=== PATIENT | female | born 1935 | race Caucasian/White ===

== ENCOUNTER 2016-04-14 01:44 | Observation (INO) | payer OTHER ==
[~2016-04-14] VITALS: Ht 157.5 cm; Wt 99.7 kg
[~2016-04-14 01:44] MED LIST: ACETAMINOPHEN325 M1 PO; ADALAT CC 30 MG30 MG PO; ADALAT CC 60 MG60 MG PO; ADVAIR 250/501 DISK IH; ADVAIR HFA120 INHALA IH; ALBUTEROL SULF8.5 GM IH; ALDACTONE25 MG PO; ANTI-ITCH28.4 GM TP; ARTANE2 MG PO; ASPIR 8181 MG PO; ASPIR-LOW81 MG PO; ASPIRIN E.C.81 M1 PO; ASPIRIN325 MG PO; ASPIRIN81 M2 PO; ATORVASTATIN CA40 MG PO; Apresoline PO; B-12500 MC1 SL; BENADRYL25 MG PO; BENICAR20 MG PO; CALCIO DEL MAR500 MG PO; CALTRATE 600600 MG PO; CARBIDOPA-LEVO1 EAC1 PO; CARBIDOPA/LEVO1 EACH PO; CARBIDOPA25 MG PO; CARVEDILOL12.5 MG PO; CATAPRES0.1 MG PO; CATAPRES0.2 MG PO; CEFDINIR300 MG PO; CELEXA20 MG PO; CIPROFLOXACIN500 M1 PO; CITALOPRAM HBR20 MG PO; CITALOPRAM HBR40 MG PO; CLONAZEPAM0.5 MG PO; CLONIDINE HCL0.1 MG PO; CLONIDINE HCL0.2 MG PO; COLACE100 MG PO; COZAAR50 MG PO; CYANOCOBALAM1000 MCG PO; Catapres PO; Cipro PO; Cozaar PO; DESYREL100 MG PO; DIOVAN; DIOVAN160 MG PO; DOCUSATE SODIU100 MG PO; DOXYCYCLINE HY100 MG PO; DUONEB 2.5-0.5 M3 ML AEROSOL; DUONEB 2.5-0.5 M3 ML IH; DUONEB 2.5-0.5 M3 ML PEP; ENALAPRIL MALEAT5 MG PO; ENDOCET 5-3251 EACH PO; FERROUS SULFAT325 MG PO; FISH OIL300 MG PO; FISH OIL500 MG PO; FLOMAX0.4 MG PO; FUROSEMIDE; FUROSEMIDE20 MG PO; FUROSEMIDE40 MG PO; GABAPENTIN100 MG PO; GABAPENTIN300 MG PO; HYDRALAZINE HCL25 MG PO; IMDUR30 MG PO; ISOSORBIDE MONO30 MG PO; K-DUR10 MEQ PO; LABETALOL HCL200 MG PO; LANTUS; LANTUS 10100 UNITS/ SC; LANTUS 3 M100 UNITS/ SC; LANTUS 3 M100 UNITS1 SC; LANTUS100 UNIT/1 SQ; LASIX20 MG PO; LASIX40 MG PO; LASIX80 MG PO; LEVAQUIN500 MG PO; LEVOFLOXACIN750 MG PO; LEXAPRO10 MG PO; LEXAPRO20 MG PO; LIPITOR40 MG PO; LISINOPRIL10 MG PO; LO-DOSE ASPIRIN81 M1 PO; LO-DOSE ASPIRIN81 M2 PO; LOPRESSOR100 M1 PO; LOSARTAN POTASS25 MG PO; LOSARTAN POTASS50 MG PO; Lasix PO; MEDROL4 MG PO; MELATONIN10 M2 PO; MELATONIN5 MG SL; METFORMIN HCL500 MG PO; METOPROLOL SUC100 MG PO; METOPROLOL SUCC25 MG PO; METOPROLOL SUCC50 MG PO; METOPROLOL TAR100 MG PO; MIRAPEX0.25 MG PO; Martinic PO; Medrol Dosepak PO; NEOSPORIN ANT70.8 GM TP; NEURONTIN300 MG PO; NIFEDIAC CC30 MG PO; NIFEDICAL XL30 MG PO; NIFEDIPINE ER60 MG PO; NIFEDIPINE20 MG PO; NITROSTAT0.4 MG SL; NORMODYNE,TRAN200 MG PO; NOVOLOG 10100 UNITS/ SC; NOVOLOG PE100 UNITS/ SC; OMEGA 3 1,0001 EACH PO; OXYCODONE HCL10 MG PO; Omega III EPA + DHA PO; PARCOPA PO; PERCOCET 10/1 TABLET PO; PLAVIX75 MG PO; POTASSIUM CHLO10 ME3 PO; PRAMIPEXOLE D0.25 MG PO; PRAMIPEXOLE D0.75 MG PO; PRINIVIL20 MG PO; PROBIOTIC250 MG PO; PROTONIX40 MG PO; Procardia XL,Adalat PO; QUETIAPINE FUMA25 MG PO; ROBITUSSIN AC,T10 ML PO; SENNA8.6 MG PO; SINEMET 25-1001 EACH PO; SINEMET CR 50-1 EACH PO; SINEMET PO; SPIRONOLACTONE25 MG PO; SPIRONOLACTONE50 MG PO; TOPROL XL50 MG PO; TOUJEO SOL300 UNIT/1 SC; TOVIAZ4 MG PO; TRAMADOL HCL50 MG PO; TRAZODONE HCL100 MG PO; TRAZODONE HCL50 MG PO; TRESIBA FL100 UNIT/1 SC; TRIHEXYPHENIDYL HCL PO; TUMS500 MG PO; Toprol XL PO; VITAMIN B-1100 MG PO; VITAMIN B-6100 MG PO; VYTORIN 10-801 EACH PO; VYTORIN 10/81 TABLET PO; ZESTORETIC,P1 TABLE1 PO; Zestoretic,Prinzide PO
[2016-04-14 02:16] LABS: HEMATOCRIT 36.7 % (36.0-46.0); MCH 28.8 PG (29.0-34.0); MCHC 33.8 G/DL (30.0-36.0); MCV 85.2 FL (83-99); MEAN PLAT.VOLUME 10.2 uM^3 (9.5-12.4); PLATELET COUNT 219 K/uL (156-360); RBC DIS.WIDTH-CV 12.3 % (11.8-14.6); RBC DIS.WIDTH-SD 36.8 % (39-53); RED BLOOD COUNT 4.31 M/uL (3.80-5.20); WHITE BLOOD COUNT 7.7 K/uL (4.1-10.2)
[2016-04-14 02:27] LABS: CHLORIDE 100 mEq/L (99-109); POTASSIUM 4.8 mEq/L (3.7-5.4); SODIUM 136 mEq/L (136-147)
[2016-04-14 02:28] LABS: GLUCOSE 322 mg/dL (70-99)
[2016-04-14 02:30] LABS: ANION GAP 12 MEQ/L (2-14)
[2016-04-14 02:32] LABS: GFR ESTIMATE (CALCULATED) 36 mL/min/
[2016-04-14 02:33] LABS: UREA NITROGEN (BUN) 50 mg/dL (9-23)
[2016-04-14 02:39] LABS: TROP-I INTERPRETATION NEGATIVE; TROPONIN-I 0.01 ng/mL (0.0-0.30)
[2016-04-14 05:13] VITALS: BP 177/77
[2016-04-14 07:16] VITALS: BP 158/69
[2016-04-14 07:41] VITALS: BP 147/64
[2016-04-14 08:37] LABS: POINT-OF-CARE METER ID UU13113831
[2016-04-14 09:28] LABS: HEMATOCRIT 35.3 % (36.0-46.0); MCH 28.4 PG (29.0-34.0); MCHC 33.4 G/DL (30.0-36.0); MCV 85.1 FL (83-99); MEAN PLAT.VOLUME 10.3 uM^3 (9.5-12.4); PLATELET COUNT 194 K/uL (156-360); RBC DIS.WIDTH-CV 12.6 % (11.8-14.6); RBC DIS.WIDTH-SD 38.6 % (39-53); RED BLOOD COUNT 4.15 M/uL (3.80-5.20); WHITE BLOOD COUNT 7.6 K/uL (4.1-10.2)
[2016-04-14 10:05] LABS: ALKALINE PHOSPHATASE 90 IU/L (3-129); ANION GAP 8 MEQ/L (2-14); CHLORIDE 101 MEQ/L (99-109); GFR ESTIMATE (CALCULATED) 57 mL/min/; GLUCOSE 125 mg/dL (70-99); POTASSIUM 4.5 MEQ/L (3.7-5.4); SAMPLE HEMOLYSIS CHECK 0; SAMPLE ICTERIC CHECK 0; SAMPLE LIPEMIA CHECK 0; SODIUM 138 MEQ/L (136-147); TOTAL BILIRUBIN 0.4 MG/DL (0.0-1.0); UREA NITROGEN (BUN) 40 mg/dL (9-23)
[2016-04-14 10:07] LABS: TROP-I INTERPRETATION NEGATIVE; TROPONIN-I 0.01 ng/mL (0.0-0.30)
[2016-04-14 10:57] VITALS: BP 123/56
[2016-04-14 12:35] LABS: POINT-OF-CARE METER ID UU13113831
[2016-04-14 13:18] LABS: ADD MIUA? YES; BILIRUBIN NEGATIVE; BLOOD NEGATIVE; COLOR YELLOW ((YELLOW)); GLUCOSE (STRIP) NEGATIVE; KETONES 5; LEUKOCYTES MODERATE; NITRITE NEGATIVE; PROTEIN (STRIP) NEGATIVE; SPECIFIC GRAVITY 1.015 (1.000-1.030); UROBILINOGEN 0.2 MG/DL (0.2-1.0)
[2016-04-14 14:12] LABS: BACTERIA RARE /HPF; EPITHELIAL CELLS 1+ /HPF; HYALINE CASTS 0-5 /LPF; MUCUS NONE SEEN /LPF; RED BLOOD CELLS NONE SEEN /HPF (0-5); UCUL ADDED? NO; WHITE BLOOD CELLS 40-50 /HPF (0-5); WHITE BLOOD CELLS CLUMP FEW /HPF (0-5)
[2016-04-14 15:45] LABS: TROP-I INTERPRETATION NEGATIVE; TROPONIN-I < 0.01 ng/mL (0.0-0.30)
[2016-04-14 16:14] VITALS: BP 168/77
[2016-04-14] MEDS ORDERED: AMLODIPINE BESYL5 MG PO (16:15)
[2016-04-14 17:49] LABS: POINT-OF-CARE METER ID UU14162513
== END 2016-04-14 18:07 | disposition home or self-care (01) ==
LOC: EME → EDBD 01:44 → EDOF 03:49 → 5WEST 04:58
PROVIDERS: Emergency Medicine; Hospitalist; Internal Medicine; Nurse Practitioner Family
DX: R07.9 Chest pain, unspecified (principal); F41.9 Anxiety disorder, unspecified; G20 Parkinson's disease; E11.9 Type 2 diabetes mellitus without complications; Z79.4 Long term (current) use of insulin; I25.10 Atherosclerotic heart disease of native coronary artery without angina pectoris; Z98.61 Coronary angioplasty status; I10 Essential (primary) hypertension; E78.5 Hyperlipidemia, unspecified; I35.0 Nonrheumatic aortic (valve) stenosis; I44.7 Left bundle-branch block, unspecified; Z79.82 Long term (current) use of aspirin; E66.9 Obesity, unspecified; Z68.41 Body mass index [BMI] 40.0-44.9, adult; M19.90 Unspecified osteoarthritis, unspecified site; Z96.642 Presence of left artificial hip joint; Z82.49 Family history of ischemic heart disease and other diseases of the circulatory system; Z80.9 Family history of malignant neoplasm, unspecified; Z88.0 Allergy status to penicillin
CPT/HCPCS: 71010; 80048; 80053; 81003; 82948; 84484; 85027; 93005; 94799; 99202; 99281; 99285; G0378; J1644; J1815

== ENCOUNTER 2016-05-25 07:51 | Observation (INO) | payer OTHER ==
[~2016-05-25] VITALS: Ht 163.8 cm; Wt 100.6 kg
[~2016-05-25 07:51] MED LIST changes: +AMLODIPINE BESYL5 MG PO
[2016-05-25] MEDS ORDERED: LIPITOR40 MG PO (08:12)
[2016-05-25] MEDS ORDERED: CARBIDOPA/LEVO1 EACH PO (08:13)
[2016-05-25] MEDS ORDERED: MELATONIN5 M4 PO (08:13)
[2016-05-25] MEDS ORDERED: IMDUR30 MG PO (08:13)
[2016-05-25] MEDS ORDERED: SPIRONOLACTONE25 MG PO (08:14)
[2016-05-25] MEDS ORDERED: TORSEMIDE10 MG PO (08:14)
[2016-05-25] MEDS ORDERED: DESYREL100 MG PO (08:15)
[2016-05-25] MEDS ORDERED: MIRAPEX0.25 MG PO (08:15)
[2016-05-25] MEDS ORDERED: LASIX20 MG PO (08:15)
[2016-05-25] MEDS ORDERED: CITALOPRAM HBR20 MG PO (08:16)
[2016-05-25] MEDS ORDERED: METOPROLOL TAR100 MG PO (08:16)
[2016-05-25] MEDS ORDERED: LO-DOSE ASPIRIN81 M2 PO (08:17)
[2016-05-25] MEDS ORDERED: TRESIBA FL100 UNIT/1 SC (08:18)
[2016-05-25 08:39] LABS: HEMATOCRIT 37.5 % (36.0-46.0); MCH 28.4 PG (29.0-34.0); MCHC 32.8 G/DL (30.0-36.0); MCV 86.6 FL (83-99); MEAN PLAT.VOLUME 10.2 uM^3 (9.5-12.4); PLATELET COUNT 235 K/uL (156-360); RBC DIS.WIDTH-CV 12.4 % (11.8-14.6); RED BLOOD COUNT 4.33 M/uL (3.80-5.20); WHITE BLOOD COUNT 7.2 K/uL (4.1-10.2)
[2016-05-25 08:51] LABS: CHLORIDE 101 mEq/L (99-109); POTASSIUM 4.4 mEq/L (3.7-5.4); SODIUM 137 mEq/L (136-147)
[2016-05-25 08:53] LABS: GLUCOSE 252 mg/dL (70-99)
[2016-05-25 08:54] LABS: ANION GAP 9 MEQ/L (2-14)
[2016-05-25 08:57] LABS: GFR ESTIMATE (CALCULATED) 46 mL/min/
[2016-05-25 08:58] LABS: UREA NITROGEN (BUN) 28 mg/dL (9-23)
[2016-05-25 09:01] LABS: TROP-I INTERPRETATION NEGATIVE; TROPONIN-I < 0.01 ng/mL (0.0-0.30)
[2016-05-25] MEDS ORDERED: FUROSEMIDE40 MG PO (10:11)
[2016-05-25] MEDS ORDERED: CITALOPRAM HBR40 MG PO (10:13)
[2016-05-25] MEDS ORDERED: GABAPENTIN100 MG PO (10:14)
[2016-05-25] MEDS ORDERED: PERCOCET 10/1 TABLET PO (10:14)
[2016-05-25] MEDS ORDERED: PLAVIX75 MG PO (10:15)
[2016-05-25] MEDS ORDERED: MOVE IT ALONG100 MG PO (10:15)
[2016-05-25] MEDS ORDERED: VITAMIN B-6100 MG PO (10:15)
[2016-05-25 11:23] LABS: POINT-OF-CARE METER ID UU13113702
[2016-05-25 11:57] VITALS: BP 156/69
[2016-05-25 15:18] LABS: TROP-I INTERPRETATION NEGATIVE; TROPONIN-I 0.02 ng/mL (0.0-0.30)
[2016-05-25 16:25] VITALS: BP 119/58
[2016-05-25 17:07] LABS: POINT-OF-CARE METER ID UU13113831
[2016-05-25 20:55] VITALS: BP 141/66
[2016-05-25 21:06] LABS: TROP-I INTERPRETATION NEGATIVE; TROPONIN-I 0.02 ng/mL (0.0-0.30)
[2016-05-26 00:15] VITALS: BP 126/60
[2016-05-26 06:04] VITALS: BP 136/68
[2016-05-26 08:00] VITALS: BP 133/63
[2016-05-26 10:56] LABS: ALKALINE PHOSPHATASE 73 IU/L (3-129); ANION GAP 6 MEQ/L (2-14); CHLORIDE 101 MEQ/L (99-109); GFR ESTIMATE (CALCULATED) 57 mL/min/; POTASSIUM 4.1 MEQ/L (3.7-5.4); SAMPLE HEMOLYSIS CHECK 0; SAMPLE ICTERIC CHECK 0; SAMPLE LIPEMIA CHECK 0; SODIUM 139 MEQ/L (136-147); TOTAL BILIRUBIN 0.6 MG/DL (0.0-1.0); UREA NITROGEN (BUN) 28 mg/dL (9-23)
[2016-05-26 11:09] LABS: GLUCOSE 118 mg/dL (70-99)
== END 2016-05-26 11:27 | disposition home or self-care (01) ==
LOC: EME → EDBD 07:51 → EME 07:51 → 5WEST 10:07 → EDOF 10:07 → 5WEST 11:33
PROVIDERS: Hospitalist; Internal Medicine; Physician Assistant
DX: R07.89 Other chest pain (principal); R91.8 Other nonspecific abnormal finding of lung field; G20 Parkinson's disease; I10 Essential (primary) hypertension; J44.9 Chronic obstructive pulmonary disease, unspecified; E11.65 Type 2 diabetes mellitus with hyperglycemia; I25.10 Atherosclerotic heart disease of native coronary artery without angina pectoris; E78.5 Hyperlipidemia, unspecified; I08.0 Rheumatic disorders of both mitral and aortic valves; I44.7 Left bundle-branch block, unspecified; F32.9 Major depressive disorder, single episode, unspecified; Z95.5 Presence of coronary angioplasty implant and graft; Z96.642 Presence of left artificial hip joint
CPT/HCPCS: 71010; 80048; 80053; 82948; 83880; 84484; 85027; 93005; 99281; 99285; G0378; J1650; J1815

== ENCOUNTER 2016-06-11 16:59 | Emergency (ER) | payer OTHER ==
[~2016-06-11] VITALS: Ht 162.6 cm; Wt 102.6 kg
[~2016-06-11 16:59] MED LIST changes: +MELATONIN5 M4 PO; +MOVE IT ALONG100 MG PO; +TORSEMIDE10 MG PO
[2016-06-11 18:00] LABS: BASOPHIL COUNT 0.1 K/uL (0-0.1); EOSINOPHIL COUNT 0.2 K/uL (0-0.3); HEMATOCRIT 34.8 % (36.0-46.0); IMMATURE GRANULOCYTE (%) 0.3 % (0.0-0.7); LYMPHOCYTE COUNT 1.8 K/uL (1.0-2.8); MCH 28.3 PG (29.0-34.0); MCHC 32.5 G/DL (30.0-36.0); MCV 87.2 FL (83-99); MEAN PLAT.VOLUME 9.6 uM^3 (9.5-12.4); MONOCYTE (%) 7.5 % (3-12); MONOCYTE COUNT 0.7 K/uL (0-0.8); NEUTROPHIL (%) 68.8 % (45-76); PLATELET COUNT 253 K/uL (156-360); RBC DIS.WIDTH-CV 12.8 % (11.8-14.6); RBC DIS.WIDTH-SD 40.8 % (39-53); RED BLOOD COUNT 3.99 M/uL (3.80-5.20); WHITE BLOOD COUNT 8.7 K/uL (4.1-10.2)
[2016-06-11 18:07] LABS: CARBON DIOXIDE (BICARBONATE) 34.2 MEQ/L (20-31)
[2016-06-11 18:13] LABS: CHLORIDE 102 mEq/L (99-109); POTASSIUM 5.1 mEq/L (3.7-5.4); SODIUM 139 mEq/L (136-147)
[2016-06-11 18:14] LABS: GLUCOSE 106 mg/dL (70-99)
[2016-06-11 18:16] LABS: ANION GAP 8 MEQ/L (2-14)
[2016-06-11 18:18] LABS: GFR ESTIMATE (CALCULATED) 57 mL/min/
[2016-06-11 18:19] LABS: UREA NITROGEN (BUN) 28 mg/dL (9-23)
[2016-06-11 18:24] LABS: TROP-I INTERPRETATION NEGATIVE; TROPONIN-I < 0.01 ng/mL (0.0-0.30)
[2016-06-11 19:04] LABS: INFLUENZA A VIRAL ANTIGEN POSITIVE; INFLUENZA B VIRAL ANTIGEN NEGATIVE
[2016-06-11] MEDS ORDERED: TAMIFLU75 MG PO (19:28)
[2016-06-11 19:43] VITALS: BP 152/87
== END 2016-06-11 19:54 | disposition home or self-care (01) ==
LOC: EME 16:59
PROVIDERS: Emergency Medicine
DX: J10.1 Influenza due to other identified influenza virus with other respiratory manifestations (principal); I11.0 Hypertensive heart disease with heart failure; I50.9 Heart failure, unspecified; G89.29 Other chronic pain; E11.9 Type 2 diabetes mellitus without complications; J44.9 Chronic obstructive pulmonary disease, unspecified; E78.5 Hyperlipidemia, unspecified; I25.2 Old myocardial infarction; K21.9 Gastro-esophageal reflux disease without esophagitis; G20 Parkinson's disease; Z98.61 Coronary angioplasty status; Z79.82 Long term (current) use of aspirin; Z87.891 Personal history of nicotine dependence
CPT/HCPCS: 71010; 80048; 82803; 83880; 84484; 85025; 87502; 93005; 99281; 99284

== ENCOUNTER 2016-07-06 22:02 | Observation (INO) | payer OTHER ==
[~2016-07-06] VITALS: Ht 163.8 cm; Wt 99.0 kg
[~2016-07-06 22:02] MED LIST changes: +TAMIFLU75 MG PO
[2016-07-06] MEDS ORDERED: TORSEMIDE10 MG PO (22:19)
[2016-07-06 22:37] LABS: HEMATOCRIT 38.7 % (36.0-46.0); MCH 28.7 PG (29.0-34.0); MCHC 32.8 G/DL (30.0-36.0); MCV 87.6 FL (83-99); MEAN PLAT.VOLUME 9.9 uM^3 (9.5-12.4); PLATELET COUNT 239 K/uL (156-360); RBC DIS.WIDTH-SD 42.2 % (39-53); RED BLOOD COUNT 4.42 M/uL (3.80-5.20); WHITE BLOOD COUNT 9.5 K/uL (4.1-10.2)
[2016-07-06 22:49] LABS: CHLORIDE 103 mEq/L (99-109); POTASSIUM 5.8 mEq/L (3.7-5.4); SODIUM 138 mEq/L (136-147)
[2016-07-06 22:51] LABS: GLUCOSE 210 mg/dL (70-99)
[2016-07-06 22:52] LABS: ANION GAP 12 MEQ/L (2-14)
[2016-07-06 22:55] LABS: GFR ESTIMATE (CALCULATED) 46 mL/min/
[2016-07-06 22:56] LABS: UREA NITROGEN (BUN) 40 mg/dL (9-23)
[2016-07-06 23:01] LABS: TROP-I INTERPRETATION NEGATIVE; TROPONIN-I < 0.01 ng/mL (0.0-0.30)
[2016-07-06] MEDS ORDERED: NEURONTIN300 MG PO (23:58)
[2016-07-06] MEDS ORDERED: CLONIDINE HCL0.1 MG PO (23:59)
[2016-07-07 01:37] VITALS: BP 151/69
[2016-07-07 04:16] VITALS: BP 172/73
[2016-07-07 05:54] LABS: TROP-I INTERPRETATION NEGATIVE; TROPONIN-I 0.02 ng/mL (0.0-0.30)
[2016-07-07 06:03] LABS: HDL CHOLESTEROL 42 MG/DL (Desirable>=50); LDL CHOLESTEROL 82 mg/dL (Desirable<100); NON-HDL CHOLESTEROL 133 mg/dL (Desirable<160); TOTAL CHOLESTEROL 175 mg/dL (Desirable<200); TRIGLYCERIDES 256 MG/DL (Normal: <150)
[2016-07-07 07:24] LABS: ALKALINE PHOSPHATASE 81 IU/L (3-129); ANION GAP 9 MEQ/L (2-14); CHLORIDE 103 MEQ/L (99-109); GFR ESTIMATE (CALCULATED) 57 mL/min/; GLUCOSE 162 mg/dL (70-99); LIPASE 53 U/L (1.0-51.0); POTASSIUM 5.1 MEQ/L (3.7-5.4); SODIUM 138 MEQ/L (136-147); TOTAL BILIRUBIN 0.6 MG/DL (0.0-1.0); UREA NITROGEN (BUN) 36 mg/dL (9-23)
[2016-07-07 07:38] LABS: HEMATOCRIT 36.2 % (36.0-46.0); MCH 29.1 PG (29.0-34.0); MCHC 32.6 G/DL (30.0-36.0); MCV 89.2 FL (83-99); MEAN PLAT.VOLUME 10.5 uM^3 (9.5-12.4); PLATELET COUNT 226 K/uL (156-360); RBC DIS.WIDTH-CV 13.1 % (11.8-14.6); RBC DIS.WIDTH-SD 42.5 % (39-53); RED BLOOD COUNT 4.06 M/uL (3.80-5.20); WHITE BLOOD COUNT 8.7 K/uL (4.1-10.2)
[2016-07-07 08:21] LABS: POINT-OF-CARE METER ID UU14162513
[2016-07-07 08:41] VITALS: BP 163/73
[2016-07-07 09:18] LABS: Estimated Average Glucose 217 mg/dL (70-123); HEMOGLOBIN A1c (GLYCOHEMOGLOB) 9.2 % HGB (Below 5.7)
[2016-07-07 11:19] LABS: ANION GAP 7 MEQ/L (2-14); CHLORIDE 102 MEQ/L (99-109); GFR ESTIMATE (CALCULATED) > 59 mL/min/; GLUCOSE 168 mg/dL (70-99); POTASSIUM 4.8 MEQ/L (3.7-5.4); SAMPLE HEMOLYSIS CHECK 0; SAMPLE ICTERIC CHECK 0; SAMPLE LIPEMIA CHECK 0; SODIUM 137 MEQ/L (136-147); UREA NITROGEN (BUN) 31 mg/dL (9-23)
[2016-07-07 11:20] LABS: TROP-I INTERPRETATION NEGATIVE; TROPONIN-I 0.01 ng/mL (0.0-0.30)
[2016-07-07 12:13] VITALS: BP 154/67
[2016-07-07 12:35] LABS: POINT-OF-CARE METER ID UU14162513
[2016-07-07 15:34] VITALS: BP 148/66
[2016-07-07 16:31] LABS: POINT-OF-CARE METER ID UU13113694
[2016-07-07 17:04] LABS: POINT-OF-CARE METER ID UU13113694; POINT-OF-CARE USER ID AHSUCAJR
[2016-07-07 18:28] LABS: POINT-OF-CARE METER ID UU13113819
[2016-07-07 21:00] VITALS: BP 153/69
[2016-07-07 21:08] LABS: POINT-OF-CARE METER ID UU14162513
[2016-07-08 01:00] VITALS: BP 156/70
[2016-07-08 04:43] VITALS: BP 141/77
[2016-07-08 07:31] VITALS: BP 141/65
[2016-07-08] MEDS ORDERED: PANTOPRAZOLE SO40 MG PO (10:47)
== END 2016-07-08 11:50 | disposition home or self-care (01) ==
LOC: EME → EDBD 22:02 → EDOF 07-07 00:36 → 5WEST 07-07 00:36
PROVIDERS: Anesthesiology; Emergency Medicine; Hospitalist; Internal Medicine Gastroenterology; Physician Assistant Medical
PROC: 0DB68ZX Excision of Stomach, Via Natural or Artificial Opening Endoscopic, Diagnostic (ICD-10-PCS; principal; 2016-07-07)
DX: R07.89 Other chest pain (principal); R06.02 Shortness of breath; I25.10 Atherosclerotic heart disease of native coronary artery without angina pectoris; E11.9 Type 2 diabetes mellitus without complications; J44.9 Chronic obstructive pulmonary disease, unspecified; I44.7 Left bundle-branch block, unspecified; R10.13 Epigastric pain; I25.2 Old myocardial infarction; I50.32 Chronic diastolic (congestive) heart failure; I08.0 Rheumatic disorders of both mitral and aortic valves; E66.9 Obesity, unspecified; Z68.36 Body mass index [BMI] 36.0-36.9, adult; G20 Parkinson's disease; Z96.651 Presence of right artificial knee joint; E87.5 Hyperkalemia; I13.0 Hypertensive heart and chronic kidney disease with heart failure and stage 1 through stage 4 chronic kidney disease, or unspecified chronic kidney disease; N18.3 Chronic kidney disease, stage 3 (moderate); K25.9 Gastric ulcer, unspecified as acute or chronic, without hemorrhage or perforation; K29.70 Gastritis, unspecified, without bleeding; Z85.42 Personal history of malignant neoplasm of other parts of uterus; Z86.73 Personal history of transient ischemic attack (TIA), and cerebral infarction without residual deficits
CPT/HCPCS: 71010; 80048; 80048 91; 80053; 80061; 82948; 83036; 83690; 84484; 85027; 88305; 88342 TC; 93005; 99281; 99284; G0378; J1644; J2405; J7040

== ENCOUNTER 2016-10-25 23:05 | Inpatient (IN) | payer OTHER ==
[~2016-10-25] VITALS: Ht 167.6 cm; Wt 105.9 kg
[~2016-10-25 23:05] MED LIST changes: +PANTOPRAZOLE SO40 MG PO
[2016-10-25 23:23] LABS: BASE EXCESS -7.5 mEq/L (-3 to +3); BICARBONATE 22.5 mEq/L (22-26); METHEMOGLOBIN 0.6 % (0-1.5); PCO2 66 mm Hg (35-45); PO2 106 mm Hg (80-100); SITE RR; pH 7.14 (7.35-7.45)
[2016-10-25 23:24] LABS: COMMENTS - BLOOD GASES C+; DEVICE VENT; FI02 100 %; MECHANICAL RATE 14 resp/min; MODE A/C; PEEP 5 CM/H20; TIDAL VOLUME 450 ML; TOTAL RESP RATE 28 resp/min
[2016-10-25 23:41] LABS: HEMATOCRIT 42.8 % (36.0-46.0); MCH 28.4 PG (29.0-34.0); MCHC 31.1 G/DL (30.0-36.0); MCV 91.5 FL (83-99); MEAN PLAT.VOLUME 10.7 uM^3 (9.5-12.4); PLATELET COUNT 287 K/uL (156-360); RBC DIS.WIDTH-CV 12.9 % (11.8-14.6); RED BLOOD COUNT 4.68 M/uL (3.80-5.20); WHITE BLOOD COUNT 18.6 K/uL (4.1-10.2)
[2016-10-25 23:45] LABS: INTER. NORMALIZED RATIO 1.1; PROTHROMBIN TIME 11.6 SEC (10.2-12.9)
[2016-10-25 23:47] LABS: PTT 27.6 SEC (25-37)
[2016-10-25 23:52] LABS: CHLORIDE 101 mEq/L (99-109); POTASSIUM 4.9 mEq/L (3.7-5.4); SODIUM 138 mEq/L (136-147)
[2016-10-25 23:53] LABS: GLUCOSE 375 mg/dL (70-99)
[2016-10-25 23:55] LABS: ANION GAP 19 MEQ/L (2-14)
[2016-10-25 23:57] LABS: GFR ESTIMATE (CALCULATED) 42 mL/min/
[2016-10-25 23:58] LABS: UREA NITROGEN (BUN) 25 mg/dL (9-23)
[2016-10-26] VITALS (16 sets, daily range): BP systolic 112–178; BP diastolic 50–95
[2016-10-26 00:02] LABS: TROP-I INTERPRETATION NEGATIVE; TROPONIN-I < 0.01 ng/mL (0.0-0.30)
[2016-10-26 00:30] LABS: BASOPHIL COUNT 0.1 K/uL (0-0.1); EOSINOPHIL (%) 0.9 % (0-5); EOSINOPHIL COUNT 0.2 K/uL (0-0.3); HEMATOLOGY COMMENT 1 SMEAR COMPATIBLE; IMMATURE GRANULOCYTE COUNT 0.6 K/uL; INSTRUMENT ABS NEUTROPHIL CT 8.2 K/uL; LYMPHOCYTE COUNT 8.7 K/uL (1.0-2.8); MONOCYTE (%) 4.9 % (3-12); MONOCYTE COUNT 0.9 K/uL (0-0.8); NEUTROPHIL (%) 44.1 % (45-76); NEUTROPHIL COUNT 8.2 K/uL (1.8-6.4)
[2016-10-26 01:48] LABS: POINT-OF-CARE METER ID UU13113702
[2016-10-26 03:00] LABS: POINT-OF-CARE METER ID UU14100415
[2016-10-26 03:29] LABS: ADD MIUA? YES; BILIRUBIN NEGATIVE; BLOOD SMALL; COLOR YELLOW ((YELLOW)); GLUCOSE (STRIP) >=500; KETONES NEGATIVE; LEUKOCYTES SMALL; NITRITE NEGATIVE; PROTEIN (STRIP) >=500; SPECIFIC GRAVITY 1.014 (1.000-1.030); UROBILINOGEN 0.2 MG/DL (0.2-1.0)
[2016-10-26 03:59] LABS: BACTERIA NONE SEEN /HPF; EPITHELIAL CELLS NONE SEEN /HPF; HYALINE CASTS 0-5 /LPF; MUCUS TRACE /LPF; UCUL ADDED? YES; WHITE BLOOD CELLS TNTC /HPF (0-5)
[2016-10-26 04:12] LABS: POINT-OF-CARE METER ID UU14162636
[2016-10-26 04:41] LABS: BASE EXCESS 0.1 mEq/L (-3 to +3); BICARBONATE 26.8 mEq/L (22-26); CARBOXY HGB 0.6 % (0-5); METHEMOGLOBIN 1.5 % (0-1.5)
[2016-10-26 04:42] LABS: DEVICE 840; FI02 100 %; MECHANICAL RATE 18 resp/min; MODE AC; PCO2 52 mm Hg (35-45); PEEP 5 CM/H20; PO2 293 mm Hg (80-100); SITE RR; TIDAL VOLUME 450 ML; TOTAL RESP RATE 18 resp/min; pH 7.32 (7.35-7.45)
[2016-10-26 05:15] LABS: POINT-OF-CARE METER ID UU14208751
[2016-10-26 05:28] LABS: METH RESISTANT S AUREUS PCR NEGATIVE (NEGATIVE)
[2016-10-26 05:30] LABS: PROBE CHECK PASS; SPECIMEN PROCESSING CONTROL PASS
[2016-10-26 06:20] LABS: INTER. NORMALIZED RATIO 1.1; PROTHROMBIN TIME 11.9 SEC (10.2-12.9)
[2016-10-26 06:20] LABS: POINT-OF-CARE METER ID UU14208751
[2016-10-26 06:33] LABS: ANION GAP 11 MEQ/L (2-14); CHLORIDE 108 MEQ/L (99-109); POTASSIUM 4.4 MEQ/L (3.7-5.4); SAMPLE HEMOLYSIS CHECK 0; SAMPLE ICTERIC CHECK 0; SAMPLE LIPEMIA CHECK 0; SODIUM 143 MEQ/L (136-147); TOTAL BILIRUBIN 0.7 MG/DL (0.0-1.0)
[2016-10-26 06:38] LABS: ALKALINE PHOSPHATASE 118 IU/L (3-129); GFR ESTIMATE (CALCULATED) 57 mL/min/; UREA NITROGEN (BUN) 23 mg/dL (9-23)
[2016-10-26 06:39] LABS: GLUCOSE 178 mg/dL (70-99)
[2016-10-26 06:41] LABS: EOSINOPHIL (%) 0.3 % (0-5); HEMATOCRIT 33.9 % (36.0-46.0); IMMATURE GRANULOCYTE COUNT 0.1 K/uL; INSTRUMENT ABS NEUTROPHIL CT 7.9 K/uL; LYMPHOCYTE COUNT 1.7 K/uL (1.0-2.8); MCH 29.7 PG (29.0-34.0); MCHC 32.2 G/DL (30.0-36.0); MCV 92.4 FL (83-99); MEAN PLAT.VOLUME 10.4 uM^3 (9.5-12.4); MONOCYTE (%) 9.1 % (3-12); NEUTROPHIL (%) 73.2 % (45-76); NEUTROPHIL COUNT 7.9 K/uL (1.8-6.4); PLATELET COUNT 201 K/uL (156-360); RBC DIS.WIDTH-CV 12.8 % (11.8-14.6); RBC DIS.WIDTH-SD 43.8 % (39-53); WHITE BLOOD COUNT 10.8 K/uL (4.1-10.2)
[2016-10-26 07:01] LABS: RED BLOOD COUNT 3.67 M/uL (3.80-5.20)
[2016-10-26 07:24] LABS: ERTH.SED.RATE 41 MM/HR (0-30)
[2016-10-26 07:42] LABS: POINT-OF-CARE METER ID UU13113748
[2016-10-26 08:00] LABS: POINT-OF-CARE METER ID UU13113748
[2016-10-26 08:22] LABS: Estimated Average Glucose 200 mg/dL (70-123); HEMOGLOBIN A1c (GLYCOHEMOGLOB) 8.6 % HGB (Below 5.7)
[2016-10-26 08:36] LABS: ANION GAP 9 MEQ/L (2-14); CHLORIDE 107 MEQ/L (99-109); POTASSIUM 4.1 MEQ/L (3.7-5.4); SAMPLE HEMOLYSIS CHECK 0; SAMPLE ICTERIC CHECK 0; SAMPLE LIPEMIA CHECK 0; SODIUM 141 MEQ/L (136-147)
[2016-10-26 08:42] LABS: GFR ESTIMATE (CALCULATED) 57 mL/min/; GLUCOSE 128 mg/dL (70-99); UREA NITROGEN (BUN) 22 mg/dL (9-23)
[2016-10-26 09:08] LABS: POINT-OF-CARE METER ID UU13113748
[2016-10-26 09:59] LABS: POINT-OF-CARE METER ID UU13113748
[2016-10-26 11:18] LABS: POINT-OF-CARE METER ID UU13113748
[2016-10-26 12:34] LABS: POINT-OF-CARE METER ID UU13113748
[2016-10-26 13:04] LABS: ANION GAP 10 MEQ/L (2-14); CHLORIDE 109 MEQ/L (99-109); GFR ESTIMATE (CALCULATED) > 59 mL/min/; POTASSIUM 4.1 MEQ/L (3.7-5.4); SAMPLE HEMOLYSIS CHECK 0; SAMPLE ICTERIC CHECK 0; SAMPLE LIPEMIA CHECK 0; SODIUM 144 MEQ/L (136-147); UREA NITROGEN (BUN) 19 mg/dL (9-23)
[2016-10-26 13:15] LABS: GLUCOSE 92 mg/dL (70-99)
[2016-10-26 17:30] LABS: POINT-OF-CARE METER ID UU14208751
[2016-10-26 19:08] LABS: POINT-OF-CARE METER ID UU14208751
[2016-10-26 20:54] LABS: POINT-OF-CARE METER ID UU14208751
[2016-10-27] VITALS (17 sets, daily range): BP systolic 118–162; BP diastolic 56–82
[2016-10-27 00:14] LABS: POINT-OF-CARE METER ID UU14208751
[2016-10-27 05:10] LABS: CHLORIDE 111 mEq/L (99-109); POTASSIUM 4.1 mEq/L (3.7-5.4); SODIUM 142 mEq/L (136-147)
[2016-10-27 05:11] LABS: POINT-OF-CARE METER ID UU13113748
[2016-10-27 05:13] LABS: ANION GAP 9 MEQ/L (2-14)
[2016-10-27 05:14] LABS: GLUCOSE 150 mg/dL (70-99)
[2016-10-27 05:16] LABS: GFR ESTIMATE (CALCULATED) > 59 mL/min/; UREA NITROGEN (BUN) 14 mg/dL (9-23)
[2016-10-27 12:48] LABS: POINT-OF-CARE METER ID UU13113748
[2016-10-27] MEDS ORDERED: PROTONIX40 MG PO (17:54)
[2016-10-27 18:07] LABS: POINT-OF-CARE METER ID UU13113748
[2016-10-28] VITALS (25 sets, daily range): BP systolic 153–212; BP diastolic 58–131
[2016-10-28 00:31] LABS: POINT-OF-CARE METER ID UU13113748
[2016-10-28 03:20] LABS: CHLORIDE 109 mEq/L (99-109); POTASSIUM 3.8 mEq/L (3.7-5.4); SODIUM 139 mEq/L (136-147)
[2016-10-28 03:21] LABS: GLUCOSE 137 mg/dL (70-99)
[2016-10-28 03:21] LABS: MAGNESIUM 1.6 mg/dL (1.3-2.7)
[2016-10-28 03:23] LABS: ANION GAP 9 MEQ/L (2-14)
[2016-10-28 03:25] LABS: GFR ESTIMATE (CALCULATED) > 59 mL/min/
[2016-10-28 03:26] LABS: UREA NITROGEN (BUN) 12 mg/dL (9-23)
[2016-10-28 04:48] LABS: EOSINOPHIL (%) 0.9 % (0-5); EOSINOPHIL COUNT 0.1 K/uL (0-0.3); HEMATOCRIT 30.8 % (36.0-46.0); IMMATURE GRANULOCYTE (%) 0.5 % (0.0-0.7); IMMATURE GRANULOCYTE COUNT 0.1 K/uL; INSTRUMENT ABS NEUTROPHIL CT 7.9 K/uL; LYMPHOCYTE COUNT 1.5 K/uL (1.0-2.8); MCH 28.8 PG (29.0-34.0); MCHC 32.5 G/DL (30.0-36.0); MCV 88.8 FL (83-99); MEAN PLAT.VOLUME 10.3 uM^3 (9.5-12.4); MONOCYTE (%) 8.7 % (3-12); MONOCYTE COUNT 0.9 K/uL (0-0.8); NEUTROPHIL (%) 75.3 % (45-76); NEUTROPHIL COUNT 7.9 K/uL (1.8-6.4); PLATELET COUNT 200 K/uL (156-360); RBC DIS.WIDTH-CV 13.2 % (11.8-14.6); RBC DIS.WIDTH-SD 42.7 % (39-53); RED BLOOD COUNT 3.47 M/uL (3.80-5.20); WHITE BLOOD COUNT 10.4 K/uL (4.1-10.2)
[2016-10-28 06:09] LABS: POINT-OF-CARE METER ID UU13113748
[2016-10-28 12:38] LABS: POINT-OF-CARE METER ID UU14174217
[2016-10-28 18:21] LABS: POINT-OF-CARE METER ID UU14174217
[2016-10-28 23:54] LABS: POINT-OF-CARE METER ID UU14174217
[2016-10-29] VITALS (14 sets, daily range): BP systolic 118–186; BP diastolic 48–109
[2016-10-29 03:27] LABS: CHLORIDE 112 mEq/L (99-109); POTASSIUM 3.7 mEq/L (3.7-5.4); SODIUM 142 mEq/L (136-147)
[2016-10-29 03:29] LABS: GLUCOSE 112 mg/dL (70-99)
[2016-10-29 03:30] LABS: ANION GAP 9 MEQ/L (2-14)
[2016-10-29 03:33] LABS: GFR ESTIMATE (CALCULATED) > 59 mL/min/
[2016-10-29 03:34] LABS: UREA NITROGEN (BUN) 15 mg/dL (9-23)
[2016-10-29 05:28] LABS: POINT-OF-CARE METER ID UU14208751
[2016-10-29] MEDS ORDERED: ATIVAN INTE2 MG/1 ML PO (15:12)
[2016-10-29] MEDS ORDERED: LEVSIN-SL0.125 MG SL (15:12)
[2016-10-29] MEDS ORDERED: MORPHINE CON20 MG/M1 BC (15:14)
[2016-10-30 00:31] LABS: POINT-OF-CARE METER ID UU13113725
[2016-10-30 06:34] LABS: POINT-OF-CARE METER ID UU13113725
[2016-10-30 12:48] LABS: POINT-OF-CARE METER ID UU13113725
[2016-10-30] MEDS ORDERED: MORPHINE CON20 MG/M1 PO (17:42)
== END 2016-10-30 19:33 | disposition home or self-care (01) | DRG 871 ==
LOC: EME → EDBD 23:05 → EME 23:05 → EDOF 10-26 02:43 → 5EAST 10-26 02:43 → 4WEST 10-26 02:43 → ENRESERV 10-26 02:45 → 4WEST 10-26 03:56 → ENRESERV 10-29 10:16 → 4WEST 10-29 10:24 → ENRESERV 10-29 10:27 → 5EAST 10-29 12:07 → ENPENDDIS 10-30 18:30 → 5EAST 10-30 19:33
PROVIDERS: Emergency Medicine; Internal Medicine Critical Care Medicine; Specialist
DX: A41.9 Sepsis, unspecified organism (principal); E13.10 Other specified diabetes mellitus with ketoacidosis without coma; R65.20 Severe sepsis without septic shock; J96.01 Acute respiratory failure with hypoxia; L03.90 Cellulitis, unspecified; I44.7 Left bundle-branch block, unspecified; I46.9 Cardiac arrest, cause unspecified; J18.9 Pneumonia, unspecified organism; J96.91 Respiratory failure, unspecified with hypoxia; I50.9 Heart failure, unspecified; I11.0 Hypertensive heart disease with heart failure; I25.10 Atherosclerotic heart disease of native coronary artery without angina pectoris; G20 Parkinson's disease; Z51.5 Encounter for palliative care; Z88.0 Allergy status to penicillin; Z85.42 Personal history of malignant neoplasm of other parts of uterus; E66.9 Obesity, unspecified; Z68.37 Body mass index [BMI] 37.0-37.9, adult
CPT/HCPCS: 36600; 71010; 80048; 80048 91; 80053; 81003; 82010; 82803; 82947 91; 82948; 83036; 83605; 83735; 83880; 84100; 84484; 85025; 85025 91; 85610; 85651; 85730; 87040; 87070; 87086; 87205; 87641; 92610 GN; 93005; 94002; 94003; 94640 76; 94760; 94799; 99202; 99281; 99285; J0360; J0692; J1650; J1815; J1940; J1956; J2060; J2250; J2270; J2704; J3010; J3370; J7030; J7042; J7050